=== PATIENT | female | born 1940 | race Caucasian/White ===

== ENCOUNTER 2017-12-17 19:58 | Inpatient (IN) | payer MEDICARE ==
[2017-12-17] MEDS ORDERED: Ondansetron ODT 4 MG TAB ONE (20:09)
[2017-12-17 20:59] LABS: #Eosinphils 0.1 thou/uL (0.0-0.7); #Lymphocytes 1.3 thou/uL (1.20-3.40); #Monocytes 1.3 thou/uL (0.11-0.59); #Neutrophils 14.6 thou/uL (1.40-6.50); %Basophils 0.1 % (0.0-1.0); %Eosinophils 0.8 % (0.0-10.0); %Lymphocytes 7.5 % (21.0-51.0); %Monocytes 7.7 % (0.0-10.0); %Neutrophils 83.9 % (42.0-75.0); Hemoglobin 10.4 g/dL (12.0-16.0); Mean Corpuscular HGB CONC 32.3 g/dL (32.0-36.0); Mean Corpuscular Hemoglobin 30.2 pg (27.0-31.0); Mean Corpuscular Volume 93.5 fL (78.0-98.0); Mean Platelet Volume 7.7 fL (7.4-10.4); Platelet Count 144 thou/uL (130-400); RBC Distribution Width 13.4 % (11.5-14.5); Red Blood Cell (RBC) Count 3.46 mill/uL (4.20-5.40); White Blood Cell (WBC) Count 17.3 thou/uL (4.8-10.8)
[2017-12-17 21:07] LABS: INR-International Normal Ratio 1.2; PTT 30.3 SEC (22.9-36.1); Prothrombin Time 15.3 SEC (12.0-14.7)
[2017-12-17 21:28] LABS: ALT (SGPT) 13 U/L (8-55); AST (SGOT) 24 U/L (5-34); Albumin 3.5 g/dL (3.4-4.8); Alkaline Phosphatase 61 U/L (40-150); Anion Gap 15 mmol/L (10-20); BUN (Urea Nitrogen) 62 mg/dL (9.8-20.1); Bilirubin, Total 0.8 mg/dL (0.2-1.2); Calc. Creatinine Clearance 0 mL/min (70-130); Calcium 9.3 mg/dL (7.8-10.44); Carbon Dioxide 30 mmol/L (23-31); Chloride 97 mmol/L (98-107); Estimated GFR-MDRD 23; Globulin 3.2 g/dL (2.4-3.5); Glucose 229 mg/dL (83-110); Potassium 4.2 mmol/L (3.5-5.1); Protein, Total 6.7 g/dL (6.0-8.3); Sodium 138 mmol/L (136-145)
[2017-12-17] MEDS ORDERED: Ondansetron ODT 8 MG TAB ONE (22:02)
--- NOTE | 2017-12-17 22:16 | CT ---
CT CERVICAL SPINE: INDICATIONS: Fall with injury to neck. TECHNIQUE: Multiple axial tomograms obtained through the cervical spine with multiplanar reconstruction. FINDINGS: The cervical vertebrae maintain normal height and alignment. Disk spaces are maintained. There are mild to moderate degenerative changes throughout the cervical spine with facet hypertrophy and spurri ng from the vertebral bodies. No evidence of acute fracture identified. IMPRESSION: No evidence of cervical spine fracture. POS: [facility]
--- NOTE | 2017-12-17 22:20 | CT ---
CT LUMBAR SPINE: INDICATIONS: Fall with injury to low back. TECHNIQUE: Multiple axial tomograms obtained through the lumbar spine with multiplanar reconstruction. FINDINGS: The lumbar vertebrae maintain normal height and alignment. Moderate to severe degenerative changes a re noted. Degenerative disk changes are seen with gas in the disk spaces at L2-L3, L3-L4, and L5-S1. Disk space height is relatively well preserved. Prominent degenerative spurring from all lumbar ve rtebrae. Facet hypertrophy at all levels. No evidence of spondylolisthesis or spondylosis. No evid ence of an acute compression fracture. At L1-L2, no significant disk bulge and no central canal stenosis. At L2-L3, diffuse disk bulge, combined with facet and ligamentous hypertrophy, results in moderate ce ntral canal stenosis. At L3-L4, broad-based disk bulge with facet and ligamentous hypertrophy results in moderate to severe central canal stenosis. At L4-L5, diffuse disk bulge combined with facet and ligamentous hypertrophy results in moderate to s evere central canal stenosis. At L5-S1, diffuse disk bulge with prominent facet hypertrophy results in moderate to severe central c anal stenosis. IMPRESSION: 1. No evidence of acute fracture or vertebral body compression. 2. Moderate to severe central canal stenosis at several lumbar levels, as described above. POS: [facility]
--- NOTE | 2017-12-17 23:22 | CT ---
NONCONTRAST HEAD CT: HISTORY: The patient fell. Posttraumatic pain. COMPARISON: None. TECHNIQUE: A noncontrast head CT is performed from the skull base to the skull vertex. FINDINGS: No parenchymal hemorrhage. No extraaxial hematoma. No midline shift. The basilar cisterns are scales nt. Brain volume is age appropriate. Cortical presley white matter differentiation is preserved. The ventricles and sulci are patent and symmetric. Adequate aeration of the sinuses and mastoid air cells. The calvarium is intact. Cavernous carotid atherosclerosis is noted. IMPRESSION: No acute intracranial process. POS: [facility]
--- NOTE | 2017-12-17 23:31 | CT ---
CT THORACIC SPINE WITHOUT CONTRAST: HISTORY: Trauma. Fall. Posttraumatic pain. COMPARISON: None. TECHNIQUE: A CT of the thoracic spine is performed without contrast. Reformatted images are submitted for inter pretation. FINDINGS: Limited evaluation of the mediastinum due to lack of IV contrast. Atherosclerosis of the aorta is no martina. There are coronary artery calcifications. Heart size does not appear to be enlarged. No signi ficant pericardial fluid. The visualized esophagus is grossly unremarkable. A small hiatal hernia i s noted. The visualized upper solid organs are unremarkable. There is atherosclerosis of the splenic artery. Symmetric attenuation of the psoas muscles. Mild right psoas muscle atrophy. Limited evaluation of the contents of the central spinal canal and neural foramina by technique. No high-grade central canal stenosis. No high-grade foraminal stenosis. There is diffuse bone demineralization. Extensive endplate osteophyte formation. Thoracic spine dhruv tebral body fracture is not appreciated. Mild chronic endplate deformity involving the right aspect of the T9 vertebral body is noted. Vacuum disk phenomena in the upper lumbar spine is noted. Refer to separate lumbar spine CT report f or further details. Old healed posterior right 11th rib fracture is noted. IMPRESSION: 1. Diffuse bone demineralization. No obvious acute fracture. 2. Chronic degenerative change with extensive osteophyte formation. POS: [facility]
--- NOTE | 2017-12-17 23:35 | RAD ---
ONE VIEW PELVIS: HISTORY: Fall. Pain. Trauma. COMPARISON: 10/08/2011 FINDINGS: There appears to be internal fixation hardware due to a remote right intertrochanteric fracture. Sup erimposed acute right subcapital fracture cannot be excluded. The left hip is unremarkable on this single projection. Limited evaluation of the sacral ala. The sacroiliac joints are patent and symmetric. The bony pelvis appears to be intact. IMPRESSION: Possible acute right subcapital fracture. POS: [facility]
--- NOTE | 2017-12-17 23:36 | RAD ---
RIGHT FEMUR TWO VIEWS: HISTORY: Fall. Pain. Trauma. FINDINGS: There appears to be a possible acute right subcapital fracture. Bone formation due to a remote right intertrochanteric fracture is noted. There is an intramedullary christian with a distal interlocking scre w present. There appears to be an acute spiral fracture involving the distal femur diaphysis. Exten sive vascular calcifications are noted. IMPRESSION: Acute fractures involving the right subcapital hip, as well as the distal right femoral diaphysis. POS: [facility]
--- NOTE | 2017-12-17 23:37 | RAD ---
RIGHT TIBIA AND FIBUAL TWO VIEWS: HISTORY: Pain. Trauma. Fall. FINDINGS: There is diffuse bone demineralization. A definite fracture is not appreciated. No obvious cortical irregularity or periosteal reaction. Vascular calcifications are noted. IMPRESSION: No fracture. POS: [facility]
--- NOTE | 2017-12-18 00:31 | HP ---
DATE OF ADMISSION: 12/17/2017 REQUESTING PHYSICIAN: Dr. Grant. ATTENDING SURGEON: Dr. Gifford. CONSULTATIONS: Orthopedics, Dr. Pascal. HISTORY OF PRESENT ILLNESS: Patient is a 77-year-old woman who was outside today when she was walking on some uneven ground, plantar foot, twisted and had immediate right knee pain. The so ent was assisted to seated position and EMS was notified. The patient was brought to the emergency d [facility], evaluated, examined, and noted to have a right periprosthetic femur fracture of her femora l shaft. At which time, we were asked to evaluate the patient for admission and obtain Orthopedic co nsultation. Patient denied loss of consciousness, dizziness, shortness of breath, or any syncopal ep isodes prior to falling. ALLERGIES: None. By the patient's report tonight, but her medical record shows she has a possible L ATEX allergy, we will clarify this later when she reaches the surgical floor. CURRENT MEDICATIONS: Furosemide, Coreg, Lipitor, aspirin, Amaryl, levothyroxine, citalopram, and kia olol maleate ophthalmic. PAST MEDICAL HISTORY: Type 2 diabetes, hyperlipidemia, hypertension, depression. PAST SURGICAL HISTORY: Cardiac catheterization, left knee replacement, right hip percutaneous pinnin g, and right femur IM nailing after hardware failing, partial hysterectomy. SOCIAL HISTORY: Patient currently lives at home with family. She denies drug, tobacco, or alcohol u se. FAMILY HISTORY: Diabetes, coronary artery disease. REVIEW OF SYSTEMS: Ten-point review of systems negative as otherwise stated. PHYSICAL EXAMINATION: VITAL SIGNS: Blood pressure 127/53, heart rate 84, respirations 18, oxygen saturation 99% on 3 liter s via nasal cannula, temperature is 98.2. GENERAL: Patient is resting comfortably in bed. She is awake, alert, and oriented x3. [place] coma scale is 15. HEENT: Head is normocephalic, atraumatic. Eyes, extraocular motion intact. PERRLA bilaterally. Ea rs are atraumatic without discharge. Nose are atraumatic without discharge. Oropharynx is clear. NECK: Nontender. Trachea is midline. No JVD. CHEST: Clear to auscultation with good inspiratory and expiratory effort. HEART: Regular rate and rhythm. ABDOMEN: Soft, flat, nontender with active bowel sounds. Pelvis is stable. EXTREMITIES: Show capillary refill less than 3 seconds. Pulses are 2+. Right lower extremity shows tenderness to palpation of the distal femur consistent with her fracture. BACK: By report is atraumatic and nontender. LABORATORY FINDINGS: White blood cell count 17.3, hemoglobin 10.4, hematocrit 32.3, platelets 144. Sodium 138, potassium 4.2, chloride 97, CO2 of 30, BUN 62, creatinine 2.10, glucose 229. LFTs are un remarkable. CK 355. PT 15, INR 1.2, PTT 30. RADIOGRAPHIC FINDINGS: CT of the brain without contrast shows no acute intracranial process. CT of the C-spine without contrast shows no evidence of cervical spine fracture. CT of the thoracic spine without contrast shows diffuse bone demineralization with no obvious acute fracture. Chronic degener ative change with extensive osteophyte formation. CT of the lumbar spine without contrast shows no e vidence of acute fracture or vertebral body compression. AP pelvis shows a possible acute right subc apital fracture. Views of the right femur show acute fractures involving the right subcapital hip as well as a distal femoral diaphysis. ASSESSMENT AND PLAN: 1. Status post fall. 2. Right femur fracture likely proximal and mid shaft. 3. Pain secondary to acute trauma. 4. Acute on chronic kidney injury. 5. History of diabetes. 6. History of hypertension. 7. History of hyperlipidemia. 8. History of coronary artery disease. Plan will be to admit the patient to the surgical floor. Initial discussion with Dr. Pascal was mirela t the patient was unlikely to need surgery. This may change, however, in light of the patient having a proximal femur fracture also initially it appeared that she only had a diaphyseal fracture. We wi ll discuss this with him in the morning. Patient will have pain control, pulmonary toilet, gastritis , mechanical deep venous thrombosis prophylaxis. The evaluation, examination, radiographic, and labo ratory findings will be discussed with Dr. Gifford after this dictation.
[2017-12-18] MEDS ORDERED: HYDROcodone/Acetaminophen 10/325 mg Tablet PO PRN ×2 (01:38)
[2017-12-18] MEDS ORDERED: Ondansetron ODT 4 MG TAB PO PRN (01:38)
[2017-12-18] MEDS ORDERED: Dextrose 50% Abboject 50 ML SYRINGE SLOW IVP PRN ×2 (01:38→18:29)
[2017-12-18] MEDS ORDERED: Ondansetron HCl/PF 4 MG/2 ML Vial IVP PRN (01:38)
[2017-12-18] MEDS ORDERED: Dextrose 5% in Water 1,000 ML IV PRN ×2 (01:38→18:29)
[2017-12-18] MEDS: Sodium Chloride 0.9% 1,000 ML IV SCH ×2 (02:30→12:46)
[2017-12-18 03:58] VITALS: BMI 46.4
[2017-12-18 05:38] LABS: Anion Gap 15 mmol/L (10-20); BUN (Urea Nitrogen) 65 mg/dL (9.8-20.1); CK (CPK) 562 U/L (29-168); Calc. Creatinine Clearance 42 mL/min (70-130); Calcium 9.1 mg/dL (7.8-10.44); Carbon Dioxide 31 mmol/L (23-31); Chloride 99 mmol/L (98-107); Estimated GFR-MDRD 23; Glucose 222 mg/dL (83-110); Magnesium 2.1 mg/dL (1.6-2.6); Phosphorus 5.8 mg/dL (2.3-4.7); Potassium 4.9 mmol/L (3.5-5.1); Sodium 140 mmol/L (136-145)
[2017-12-18 05:41] LABS: #Lymphocytes 1.7 thou/uL (1.20-3.40); #Monocytes 1.3 thou/uL (0.11-0.59); #Neutrophils 13.1 thou/uL (1.40-6.50); %Basophils 0.2 % (0.0-1.0); %Eosinophils 0.3 % (0.0-10.0); %Lymphocytes 10.3 % (21.0-51.0); %Monocytes 8.2 % (0.0-10.0); Hemoglobin 10.1 g/dL (12.0-16.0); Mean Corpuscular HGB CONC 30.6 g/dL (32.0-36.0); Mean Corpuscular Hemoglobin 28.9 pg (27.0-31.0); Mean Corpuscular Volume 94.6 fL (78.0-98.0); Mean Platelet Volume 7.9 fL (7.4-10.4); Platelet Count 132 thou/uL (130-400); RBC Distribution Width 13.6 % (11.5-14.5); White Blood Cell (WBC) Count 16.1 thou/uL (4.8-10.8)
[2017-12-18] MEDS: Enoxaparin Sodium 30 MG/0.3 ML SYRINGE SC SCH (10:05)
--- NOTE | 2017-12-18 11:47 | RAD ---
TWO VIEWS RIGHT HIP: HISTORY: Evaluate for fracture. COMPARISON: Two views right femur 12/17/17. FINDINGS: Irregularity involving the subcapital region is again noted. The possibility of an acute fracture ca nnot be excluded. Better interrogation with CT is recommended. IMPRESSION: Possible right subcapital fracture. CT is recommended. CODE T POS: [facility]
--- NOTE | 2017-12-18 12:02 | RAD ---
PORTABLE CHEST: INDICATION: Fall with injury to chest. FINDINGS: Heart is enlarged. Postop sternotomy change. Mild vascular engorgement. I cannot exclude small eff usions. No focal or confluent infiltrates seen. Rotation mildly degrades the study. IMPRESSION: Cardiomegaly and mild vascular congestion. POS: [facility]
--- NOTE | 2017-12-18 14:06 | CON ---
DATE OF CONSULTATION: 12/18/2017 HISTORY OF PRESENT ILLNESS: Ms. Tom is a 77-year-old white female who has type 2 diabetes, hype rtension, depression. She was walking on some uneven ground yesterday. She twisted and had immediat e pain just above the right knee region. The patient was brought to the emergency room. X-rays show ed a spiral fracture of the distal shaft of the right femur. She already had a christian placed into her f emur and she has a distal interlocking screw that is distal to the fracture and the fracture overall is in good alignment. Other parts of the x-ray shows that the patient has deformity of the right fem oral neck and head with some collapse of the head, severe arthritis of the right hip, and of the righ t knee. ALLERGIES: None. CURRENT MEDICATIONS: Lasix, Coreg, Lipitor, aspirin, Amaryl, levothyroxine, citalopram, and timolol ophthalmic. PAST MEDICAL HISTORY: Type 2 diabetes, hyperlipidemia, hypertension, and depression. PAST SURGICAL HISTORY: Cardiac catheterization, left knee replacement, right hip percutaneous pinnin g, right femoral IM nailing, and partial hysterectomy. PHYSICAL EXAMINATION: GENERAL: Patient is an obese female. She currently at my time of exam very sedated, unable to wake up. SKIN: Right thigh and hip is in good condition. EXTREMITIES: She has palpable pulses in both feet. They are symmetrical. IMPRESSION: 1. Acute spiral fracture of the distal shaft of the right femur. The patient already has an interlo cking christian and therefore does not require additional surgery for the new fracture. 2. Severe arthritis of the right hip. 3. Severe arthritis of the right knee. 4. Type 2 diabetes. 5. Chronic kidney disease. 6. Hypertension. 7. Hyperlipidemia. 8. Coronary artery disease. 9. Obesity. PLAN: The patient will not require additional surgery since she already has an intramedullary christian th at transfix the fracture of the femur and the femoral fracture is in good alignment. We will have a PT and OT worked with the patient, tried to help mobilize, she can touchdown weightbear on the right lower extremity.
--- NOTE | 2017-12-18 18:11 | PRG ---
DATE OF SERVICE: 12/18/2017 HISTORY OF PRESENT ILLNESS: Ms. Tom is a 77-year-old woman who is post-injury day #1 status pos t ground level fall where she sustained right periprosthetic femur fracture. She has a history of ch ronic congestive heart failure. This morning, she is quite somnolent, which is change from yesterday . This render [place] coma scale at E3 M6 V4. PHYSICAL EXAMINATION: VITAL SIGNS: This morning includes blood pressure 174/76, pulse 63, respiratory rate 16, maximum tem perature since admission 98.8 degrees Fahrenheit, oxygen saturation this morning, 100% on 3 liters by nasal cannula oxygen. HEENT: Examination reveals normocephalic and atraumatic. Pupils are equal, round, and reactive to l ight and accommodation. Extraocular muscles are intact bilaterally. No sclerae icterus is present. Oral mucosa is pink and moist. No lesions are noted. NECK: Supple. No palpable lymphadenopathy or thyromegaly present. HEART: She has mild jugular venous distention noted. HEART: Reveals regular rate and rhythm. She has no murmurs or gallops auscultated. LUNGS: Reveals bibasilar rhonchi. Breathing is otherwise regular and unlabored. ABDOMEN: Soft, nontender and nondistended. EXTREMITIES: Reveals 2+ radial and pedal pulses bilaterally. No ankle edema is present. NEUROLOGIC: Examination reveals no focal deficits present. LABORATORY DATA: Pertinent laboratory findings today includes a CBC with 16,100 white blood cells, h emoglobin and hematocrit are 10.1 and 33.1 respectively. Platelet count is 132,000. Metabolic profi le: Sodium 140, potassium 4.9, chloride is 99, bicarbonate 31, BUN 65, creatinine is 2.09, glucose i s 222, magnesium 2.1, phosphorus is 5.8 and BNP is 1249. IMAGING DATA: I have personally reviewed a chest x-ray today which reveals cardiomegaly with increas e in perihilar markings. IMPRESSION: 1. Acute on chronic congestive heart failure. 2. Post-injury day #1, status post ground level fall with right femoral periprosthetic fracture. PLAN: 1. Forced diuresis with fluid restriction. 2. Initiate physical and occupational therapy. Preliminary evaluation by Orthopedic Surgery suggest patient's injury requires no surgical interventi on. Therefore, we will ask PM&R to evaluate the patient for possible inpatient rehabilitation once s he is hemodynamically stable.
[2017-12-18] MEDS ORDERED: traMADol HCl 50 MG TAB PO PRN (18:28)
--- NOTE | 2017-12-18 18:39 | CON ---
DATE OF CONSULTATION: 12/18/2017 REASON FOR CONSULTATION: Preoperative evaluation. PRIMARY [employer]PER[employer]: Ronda Joaquin M.D. HISTORY OF PRESENT ILLNESS: Mrs. Tom is a very pleasant 77-year-old white female who comes to [facility] for leg pain. She was outside walking on uneven grounds and she twisted her foot and imm ediately she started having right knee pain. EMS was called secondary to this that she could not wal k and she was in severe pain and she was admitted as a chest x-ray showed a right periprosthetic femu r fracture of her femoral shaft. She has had replacement in the past. She does have a history of co ronary artery disease. She had in [address], she received the stents to the right coronary kenya ry and eventually underwent coronary artery bypass grafting with a CASANOVA to the LAD and the vein to an OM. She identifies Dr. Joaquin as her road monkey, but admits that she has been followed up in [facility], last time was in about 2003. She otherwise has no chest pain, tightness, pressure, no batool rtness of breath, no lightheadedness, no syncope or presyncope. PAST MEDICAL HISTORY: 1. Type 2 diabetes. 2. Hyperlipidemia. 3. Hypertension. 4. Anxiety and depression. 5. Coronary artery disease as above. PAST SURGICAL HISTORY: 1. PCI of the right coronary artery. 2. CABG x2 with a CASANOVA to the LAD and a vein to an OM back in 2003. 3. Left knee replacement. 4. Right hip percutaneous pinning. 5. Right femur IM nailing after hardware failing. 6. Partial hysterectomy. SOCIAL HISTORY: Lives at home. No alcohol, tobacco or drugs. FAMILY HISTORY: Noncontributory. REVIEW OF SYSTEMS: A 12-point review of systems is done and is negative unless stated in the history of present illness. OUTPATIENT MEDICATIONS: Include: 1. Carvedilol. 2. Amaryl. 3. Lasix. 4. Citalopram. 5. Potassium chloride. 6. Levothyroxine. PHYSICAL EXAMINATION: VITAL SIGNS: Temperature 97.5, pulse 61, respiratory rate 12, satting 100% on 3 liters, blood pressu re 149/80. GENERAL: Awake, alert, oriented x3, in no distress. HEENT: Normocephalic, atraumatic. NECK: Supple. LUNGS: Clear. CARDIOVASCULAR: S1, S2, no S3 or S4, no murmurs, no rubs. ABDOMEN: Soft, positive bowel sounds. EXTREMITIES: Trace edema. SKIN: Warm and dry. LABORATORY WORK: Reviewed. CBC with a white count of 17, hemoglobin of 10, hematocrit of 32, platel et count of 144. Coags were reviewed. Chemistry with a creatinine of 2.1. Normal sodium, potassium , BUN of 65, phosphorus of 5.8, magnesium 2.1. BNP was 1348, CK was high at 355 and 362. EKG was reviewed. IMAGING: Hip x-ray shows possible right subcapital fracture, recommend a CT. Chest x-ray: Cardiome jeramie with mild vascular congestion. CT of the spine unremarkable except for degenerative changes. ASSESSMENT AND PLAN: 1. Preoperative evaluation: Mrs. Tom would be intermediate risk for an intermediate risk proce dure; however, she has been lost to follow up and I am unsure of what her LV function is. She has si gns and symptoms of being a little bit in heart failure. I would not be surprised if this is related to just the amount of pain and blood pressure going up with the amount of pain. She may need a holly le bit of Lasix; however right at this point, her oxygen level and her respirations are not an issue. Depending on her echocardiogram, we would recommend whether delaying this any type of surgical inte rvention is needed for a few days while she is getting diuresed, otherwise we will have further recom mendation results of echo. 2. Ischemic cardiomyopathy: Unknown ejection fraction, does have history of bypass and stent placem ent. Lost to follow. Thank you for letting us participate in the care of your patient. Further recommendation results of echocardiogram.
[2017-12-18] MEDS: Acetaminophen 500 MG TAB PO SCH (18:43)
[2017-12-18] MEDS: Insulin Regular 300 UNITS/3 ML VIAL SC PRN (18:45)
[2017-12-18] MEDS: Carvedilol 6.25 MG TAB PO SCH (21:03)
[2017-12-18] MEDS: Furosemide 80 MG TAB PO SCH (21:07)
[2017-12-19] MEDS: Acetaminophen 500 MG TAB PO SCH ×5 (00:11→23:01)
[2017-12-19] MEDS: Levothyroxine 150 MCG TAB PO SCH (06:12)
[2017-12-19] MEDS: Carvedilol 6.25 MG TAB PO SCH ×2 (08:17→20:06)
[2017-12-19] MEDS: Enoxaparin Sodium 30 MG/0.3 ML SYRINGE SC SCH (08:18)
[2017-12-19] MEDS: Furosemide 80 MG TAB PO SCH (08:18)
[2017-12-19] MEDS: Citalopram 20 MG TAB PO SCH (08:18)
[2017-12-19] MEDS ORDERED: Enoxaparin Sodium 40 MG/0.4 ML SYRINGE SC SCH (09:00)
[2017-12-19] MEDS ORDERED: Potassium Chloride 20 MEQ TAB PO SCH (09:00)
[2017-12-19 09:11] LABS: Anion Gap 15 mmol/L (10-20); BUN (Urea Nitrogen) 63 mg/dL (9.8-20.1); Calc. Creatinine Clearance 44 mL/min (70-130); Calcium 8.6 mg/dL (7.8-10.44); Carbon Dioxide 30 mmol/L (23-31); Chloride 99 mmol/L (98-107); Estimated GFR-MDRD 25; Glucose 117 mg/dL (83-110); Magnesium 2.1 mg/dL (1.6-2.6); Phosphorus 5.2 mg/dL (2.3-4.7); Potassium 4.5 mmol/L (3.5-5.1); Sodium 139 mmol/L (136-145)
--- NOTE | 2017-12-19 10:51 | PDOC.CTH ---
Cardiology Progress Note - Subjective No new issues. She is still in a lot of pain on her leg. No chest pain, tightness, pressure, SOB. Still needing O2 supplementation. - Objective Vital Signs Temp Pulse Resp BP BP Pulse Ox 12/19/17 08:47 97.8 F 66 14 109/48 L 92 L 12/19/17 08:17 145/69 H 12/19/17 04:00 97.8 F 61 16 144/78 H 96 12/19/17 00:00 97.8 F 70 16 135/68 92 L 12/18/17 12/19/17 12/20/17 06:59 06:59 06:59 Intake Total 2070 Output Total 488 Balance 1582 - Physical Examination General/Neuro: alert & oriented x3 Neck: no JVD present Lungs: unlabored respirations, other: (Crackles at bases.) Heart: RRR Abdomen: NT/ND, soft Extremities: + edema B (1+) - Labs Result Diagrams: 12/18/17 04:52 12/19/17 08:44 - Assessment/Plan 1. Acute on chronic systolic heart failure 2. Hip fracture. 3. CAD, stable 4. S/P CABG x 2 in 2003 5. S/P PCI to RCA in 2003. PLAN: - Echo pending. - Will increase diuresis to IV 80 mg lasix for the next 24 hrs see how she does. - Strict ins and outs.
[2017-12-19] MEDS: Insulin Regular 300 UNITS/3 ML VIAL SC PRN (12:13)
[2017-12-19] MEDS ORDERED: Furosemide 40 MG/4 ML VIAL SLOW IVP SCH (14:00)
[2017-12-19] MEDS: Furosemide 40 MG/4 ML VIAL SLOW IVP SCH (15:09)
--- NOTE | 2017-12-20 00:26 | PRG ---
DATE OF SERVICE: 12/19/2017 The patient was seen earlier this morning approximately 9:00 a.m. SUBJECTIVE: Lucía Tom is a 77-year-old female who is hospital day #2 status post ground level fal l. She was found to have a periprosthetic femur fracture. She has been evaluated by Orthopedic Surg rachana and this is nonoperative. She additionally has a history of CHF and has been seen and evaluated by Cardiology. Upon my evaluation this morning, the patient reports right lower extremity pain. She did otherwise vocalized no complaint. She did state that pain medications were helping. Of note, [facility] staff reported to me that the patient stated that she wanted to take a large number of pills a nd "end it all." Patient's son states that he has heard this statement before. OBJECTIVE: VITAL SIGNS: Temperature 97.8, pulse 66, respiration 14, O2 sat 92% on 2 liters nasal cannula, blood pressure 109/48. GENERAL: Well-developed female resting in bed in no acute distress. PULMONARY: Normal work of breathing. Symmetric rise. Lungs are clear to auscultation bilaterally. CARDIOVASCULAR: Regular rate and rhythm. GASTROINTESTINAL: Abdomen, soft, nontender, nondistended. MUSCULOSKELETAL: Moves all extremities x4. NEUROLOGIC: No focal deficit noted. LABORATORY DATA: WBC 16.1, hemoglobin 10.1, hematocrit 33.1, platelet count 132. Sodium 139, potass ium 4.5, chloride 99, carbon dioxide 30, BUN 63, creatinine 1.98, glucose 117. Phosphorus 5.2, magne sium 2.1. ASSESSMENT: 1. Status post ground level fall. 2. Right femur fracture. 3. Acute traumatic pain. 4. Acute kidney injury on chronic kidney disease, present on admission. 5. History of diabetes. 6. History of hypertension. 7. History of hyperlipidemia. 8. History of congestive heart failure. 9. History of coronary artery disease. PLAN: Continue PT and OT. We will have [facility] screen and evaluate the patient given her statements to the nursing staff. Follow up Cardiology recommendations and echocardiogram. AM labs. Strict I's a nd O's. Wean O2 as able. Encourage incentive spirometry and pulmonary toileting. The patient was d iscussed with Dr. Hernandez. ADDENDUM: I have spoken with the patient's son who brought her out of hospital DNR. Per discussion between myself, the patient and her son, the patient wishes to keep DNR status while in the hospital. We will change in medical record.
[2017-12-20] MEDS: Acetaminophen 500 MG TAB PO SCH ×3 (06:34→16:47)
[2017-12-20] MEDS: Levothyroxine 150 MCG TAB PO SCH (06:34)
[2017-12-20] MEDS: Furosemide 40 MG/4 ML VIAL SLOW IVP SCH (06:34)
[2017-12-20 06:47] LABS: Anion Gap 9 mmol/L (10-20); BUN (Urea Nitrogen) 66 mg/dL (9.8-20.1); Calc. Creatinine Clearance 45 mL/min (70-130); Calcium 8.7 mg/dL (7.8-10.44); Carbon Dioxide 37 mmol/L (23-31); Chloride 99 mmol/L (98-107); Estimated GFR-MDRD 25; Glucose 105 mg/dL (83-110); Magnesium 2.2 mg/dL (1.6-2.6); Phosphorus 4.4 mg/dL (2.3-4.7); Potassium 4.1 mmol/L (3.5-5.1); Sodium 141 mmol/L (136-145)
[2017-12-20] MEDS: Citalopram 20 MG TAB PO SCH (08:27)
[2017-12-20] MEDS: Carvedilol 6.25 MG TAB PO SCH ×2 (08:27→20:34)
[2017-12-20] MEDS: Enoxaparin Sodium 30 MG/0.3 ML SYRINGE SC SCH (08:27)
[2017-12-20] MEDS: Senokot S 8.6-50 MG TAB PO SCH ×2 (08:27→20:35)
[2017-12-20] MEDS: Polyethylene Glycol 3350 17 GM Packet PO SCH (08:27)
[2017-12-20] MEDS ORDERED: AcetaZOLAMIDE 250 MG TAB PO SCH (09:00)
--- NOTE | 2017-12-20 11:40 | PRG ---
DATE OF SERVICE: 12/20/2017 SUBJECTIVE: This is a 77-year-old female status post ground level fall with nonoperative femur fract ure. The patient's mood appears to be much improved this morning. There were no acute overnight isai nts. Upon our evaluation this morning, she vocalized no complaint. OBJECTIVE: VITAL SIGNS: Temperature 98.5, pulse 62, respiration rate 18, O2 sat 100% on 2 liters nasal cannula, blood pressure 151/62. GENERAL: Well-developed elderly female in no acute distress, resting in bed. PULMONARY: Normal work of breathing. Symmetric rise. LUNGS: Clear to auscultation bilaterally. CARDIOVASCULAR: Regular rate and rhythm. GASTROINTESTINAL: Soft, nontender, nondistended. MUSCULOSKELETAL: Moves all extremities x4. NEUROLOGIC: No focal deficit noted. LABORATORY DATA: Sodium 141, potassium 4.1, chloride 99, carbon dioxide 37, BUN 66, creatinine 1.95, glucose 105. ASSESSMENT: 1. Status post ground level fall. 2. Right femur fracture. 3. Acute traumatic pain. 4. Acute kidney injury on chronic kidney disease, present on admission. 5. History of diabetes. 6. History of hypertension. 7. History of hyperlipidemia. 8. History of congestive heart failure. 9. History of coronary artery disease. 10. Contraction alkalosis. PLAN: Discontinue IV Lasix given evidence of contraction alkalosis. Continue to monitor the patient closely. Continue PT and OT. Encourage incentive spirometry and pulmonary toileting. [facility] evaluat ion was ordered yesterday given patient's statements regarding possible suicidality. Code status was updated last night after discussion with son and evidence of out of hospital DNR. The patient was u pdated on plan of care. All questions were answered at the time of this dictation. There is no fami ly at bedside during our evaluation. The patient was seen and evaluated with Dr. Hernandez. We will discuss with supervisor case loading regarding event ual disposition.
[2017-12-20] MEDS: Insulin Regular 300 UNITS/3 ML VIAL SC PRN ×2 (12:22→16:47)
[2017-12-21] MEDS: Acetaminophen 500 MG TAB PO SCH ×4 (00:43→17:55)
[2017-12-21] MEDS: Levothyroxine 150 MCG TAB PO SCH (05:13)
[2017-12-21 05:55] LABS: Anion Gap 11 mmol/L (10-20); BUN (Urea Nitrogen) 55 mg/dL (9.8-20.1); Calc. Creatinine Clearance 54 mL/min (70-130); Calcium 8.6 mg/dL (7.8-10.44); Carbon Dioxide 37 mmol/L (23-31); Chloride 100 mmol/L (98-107); Estimated GFR-MDRD 31; Glucose 103 mg/dL (83-110); Sodium 144 mmol/L (136-145)
--- NOTE | 2017-12-21 08:32 | PDOC.CTH ---
Cardiology Progress Note - Subjective No new issues. Breathing at baseline. - Objective Vital Signs Temp Pulse Resp BP BP Pulse Ox 12/21/17 07:20 98.8 F 74 12 168/71 H 94 L 12/21/17 05:02 98.9 F 71 16 123/53 L 96 12/21/17 00:33 98.1 F 68 17 137/62 97 12/21/17 00:00 98.1 F 68 17 137/62 97 12/20/17 20:36 98.6 F 72 18 107/55 L 94 L 12/20/17 20:34 107/55 L 12/20/17 12/21/17 12/22/17 06:59 06:59 06:59 Intake Total 430 910 Output Total 1560 1163 Balance -1130 -253 - Physical Examination General/Neuro: alert & oriented x3, NAD Neck: no JVD present Lungs: unlabored respirations Heart: RRR Abdomen: NT/ND Extremities: + edema B (1+) - Labs Result Diagrams: 12/18/17 04:52 12/21/17 05:15 - Assessment/Plan 1. Acute on chronic diastolic heart failure, resolved. 2. Hip fracture. 3. CAD, stable 4. S/P CABG x 2 in 2003 5. S/P PCI to RCA in 2003. PLAN: - Would place back on home meds for now. - Recommend to continue to hold PO or IV lasix for now and only use it PRN. She may need a once daily lasix for her chronic leg edema but would not start it until 2 days from now. - May discharge from hospital any time from cardiac perspective. - Placement. - Follow up in the office in 3 months. - Will sign off. Please call with any questions.
[2017-12-21] MEDS: Carvedilol 6.25 MG TAB PO SCH ×2 (09:08→20:45)
[2017-12-21] MEDS: Citalopram 20 MG TAB PO SCH (09:08)
[2017-12-21] MEDS: Senokot S 8.6-50 MG TAB PO SCH ×2 (09:08→20:46)
[2017-12-21] MEDS: Polyethylene Glycol 3350 17 GM Packet PO SCH (09:10)
[2017-12-21] MEDS: Enoxaparin Sodium 30 MG/0.3 ML SYRINGE SC SCH (09:11)
[2017-12-21] MEDS: Insulin Regular 300 UNITS/3 ML VIAL SC PRN ×2 (12:08→21:22)
[2017-12-21] MEDS: hydrALAZINE 20 MG/ML VIAL SLOW IVP PRN (15:22)
--- NOTE | 2017-12-21 19:14 | PRG ---
DATE OF SERVICE: 12/21/2017 SUBJECTIVE: This is a 77-year-old female, status post ground level fall with nonoperative femur frac ture. There were no acute overnight events. Upon my evaluation this morning, the patient stated donnie n was well controlled. OBJECTIVE: VITAL SIGNS: Temperature 98.8, pulse 74, respirations 12, O2 sat 94% on 2 liters nasal cannula, bloo d pressure 168/71. GENERAL: Elderly appearing female in no acute distress, resting in bed. PULMONARY: Normal work of breathing. Symmetric rise. LUNGS: Clear to auscultation bilaterally. CARDIOVASCULAR: Regular rate and rhythm. GASTROINTESTINAL: Soft, nontender, nondistended. MUSCULOSKELETAL: Moves all extremities x4. NEUROLOGIC: No focal deficit is noted. LABORATORY DATA: Sodium 144, potassium 4.0, chloride 100, carbon dioxide 37, BUN 55, creatinine 1.61 , glucose 103. ASSESSMENT: 1. Status post ground level fall. 2. Right femur fracture. 3. Acute traumatic pain. 4. Acute kidney injury on chronic kidney disease, present on admission, improving. 5. History of diabetes. 6. History of hypertension. 7. History of lipidemia. 8. History of congestive heart failure. 9. History of coronary artery disease. 10. Contraction alkalosis. PLAN: Continue to hold IV Lasix. Continue PT and OT and encourage mobility. Encourage incentive sp irometry and pulmonary toileting. The patient has been cleared by [facility] for discharge. The patient h as been cleared by Cardiology for discharge. Awaiting acceptance that patient's choice of facility [facility]. Patient was updated on plan of care. All questions were answered at the time of is dictation. The patient was seen and evaluated with Dr. Hernandez, will discuss with case management r egarding disposition.
[2017-12-22] MEDS: Acetaminophen 500 MG TAB PO SCH ×2 (00:21→05:24)
[2017-12-22] MEDS: Levothyroxine 150 MCG TAB PO SCH (05:24)
[2017-12-22] MEDS: hydrALAZINE 20 MG/ML VIAL SLOW IVP PRN (05:55)
[2017-12-22 08:37] VITALS: BP 170/67; TEMP 97.7
[2017-12-22] MEDS: Senokot S 8.6-50 MG TAB PO SCH (09:13)
[2017-12-22] MEDS: Carvedilol 6.25 MG TAB PO SCH (09:13)
[2017-12-22] MEDS: Citalopram 20 MG TAB PO SCH (09:13)
[2017-12-22] MEDS: Enoxaparin Sodium 30 MG/0.3 ML SYRINGE SC SCH (09:14)
[2017-12-22] MEDS: Polyethylene Glycol 3350 17 GM Packet PO SCH (09:18)
[2017-12-22] MEDS ORDERED: traMADol HCl 50 MG TAB PO SCH (09:30)
--- NOTE | 2017-12-22 10:41 | DIS ---
ADMITTING PHYSICIAN: Dr. Rigoberto Gifford. DISCHARGING PHYSICIAN: Dr. Carlitos Hernandez ADMITTING DIAGNOSES: 1. Status post ground level fall. 2. Right periprosthetic femur fracture. DIAGNOSES ON DISCHARGE: 1. Status post ground level fall. 2. Right periprosthetic femur fracture. CONSULTANTS: Dr. Tan Pascal with Orthopedic Surgery and Dr. Nice with Cardiology Service. HISTORY AND HOSPITAL COURSE: A 77-year-old woman presented with right hip pain following a ground le angie fall. Clinical and radiographic examination was consistent with periprosthetic right femur fract ure. The patient was seen in consultation by Dr. Tan Pascal with Orthopedic Surgery who recommended nono perative management of the said fracture. The patient was also seen by Cardiology Service and no active cardiac dysfunctions were noted. The p atient was admitted to the Trauma Service. Care included physical and occupational therapy. VTE and gastritis prophylaxis was provided. The patient has remained hemodynamically stable. Post-injury day #4, the patient is evaluated again. She has remained hemodynamically stable and afebrile through this hospitalization. She is tolerati ng a diet and having normal bowel and urinary function. She is being discharged today to a skilled facility unit. MEDICATIONS AT TIME OF DISCHARGE: Included prehospital medications: 1. Carvedilol 12.5 mg p.o. b.i.d. 2. Furosemide 80 mg p.o. b.i.d. 3. Potassium chloride 20 mEq p.o. daily. 4. Citalopram 20 mg p.o. daily. 5. Levothyroxine 150 mcg p.o. daily. 6. Amaryl p.o. b.i.d. Additionally, the patient is given a prescription for tramadol 50 mg #40 to be taken 1 p.o. q.6 hours p.r.n. pain. She is also to take aspirin 325 mg p.o. daily and stool softeners as needed. She follows up with Dr. Tan Pascal in [facility] Clinic in 1 week post-discharge. She may follow u p with her primary care physician as needed. She requires no further follow up from this Trauma Surg rachana standpoint except for as needed. Above instructions have been given to the patient who indicates understanding of information given. I have answered all her questions.
== END 2017-12-22 10:45 | DRG 559 ==
LOC: ERS 19:58 → SURG A 22:34
PROVIDERS: ADMIT Surgery; ATTEND Surgery
DX: M97.01XA Periprosthetic fracture around internal prosthetic right hip joint, initial encounter (principal); S72.301A Unspecified fracture of shaft of right femur, initial encounter for closed fracture; I50.43 Acute on chronic combined systolic (congestive) and diastolic (congestive) heart failure; N17.9 Acute kidney failure, unspecified; I13.0 Hypertensive heart and chronic kidney disease with heart failure and stage 1 through stage 4 chronic kidney disease, or unspecified chronic kidney disease; E87.3 Alkalosis; W17.89XA Other fall from one level to another, initial encounter; Y93.01 Activity, walking, marching and hiking; Z79.82 Long term (current) use of aspirin; E78.5 Hyperlipidemia, unspecified; F32.9 Major depressive disorder, single episode, unspecified; E11.22 Type 2 diabetes mellitus with diabetic chronic kidney disease; N18.9 Chronic kidney disease, unspecified; Z79.4 Long term (current) use of insulin; I25.10 Atherosclerotic heart disease of native coronary artery without angina pectoris; Z66 Do not resuscitate; R40.2410 Glasgow coma scale score 13-15, unspecified time; Z95.1 Presence of aortocoronary bypass graft; F41.9 Anxiety disorder, unspecified; Z96.652 Presence of left artificial knee joint; I25.5 Ischemic cardiomyopathy
CPT/HCPCS: 36415; 36416; 70450; 71045; 72125; 72128; 72131; 72170; 80048; 80053; 82550; 83735; 83880; 84100; 85025; 85610; 85730; 86850; 86900; 86901; 93306; 96374; 96376; G0390; G8978-GP-CN; G8979-GP-CM; G8987-GO-CM; G8988-GO-CK; J0360; J1650; J1815; J1940; J2270; J2405; Q0162